=== PATIENT | female | born 1995 | race Two or more races ===

== ENCOUNTER 2020-08-06 18:23 | Emergency (ER) | payer OTHER ==
[~2020-08-06] VITALS: Ht 170.2 cm; Wt 71.2 kg
== END 2020-08-06 21:59 | disposition home or self-care (01) ==
LOC: ER 18:23
DX: U07.1 COVID-19 (principal)

== ENCOUNTER 2023-07-24 11:34 | Emergency (ER) | payer OTHER ==
[~2023-07-24] VITALS: Ht 170.2 cm; Wt 72.6 kg
[2023-07-24 13:15] LABS: HEMATOCRIT 38.6 % (36.0-45.00); HEMOGLOBIN 13.3 g/dL (12.0-15.00); MEAN CELL VOLUME 93.7 fL (80.00-100.00); MEAN CORPUSCULAR HEMOGLOBIN 32.2 pg (27.00-32.0); MEAN CORPUSCULAR HGB CONC 34.4 g/dl (32.0-36.0); PLATELET COUNT 221 K/uL (150-450); RED BLOOD COUNT 4.13 M/uL (4.00-6.00); RED CELL DISTRIBUTION WIDTH 13.9 % (11.5-14.5)
== END 2023-07-24 14:02 | disposition home or self-care (01) ==
LOC: ER 11:35
PROVIDERS: Emergency Medicine
DX: Z34.90 Encounter for supervision of normal pregnancy, unspecified, unspecified trimester (principal); R53.81 Other malaise; Z20.822 Contact with and (suspected) exposure to COVID-19

== ENCOUNTER 2024-10-28 18:44 | Emergency (ER) | payer OTHER ==
[~2024-10-28] VITALS: Ht 170.2 cm; Wt 69.4 kg
[2024-10-28 21:06] LABS: BASO % 0.5 % (0.1-1.2); EOS # 0.17 (0.04-0.54); EOS % 3.9 % (0.7-7.0); HEMATOCRIT 38.8 % (34.1-44.9); HEMOGLOBIN 12.9 g/dL (11.2-15.7); LYMPH # 1.35 (1.18-3.74); LYMPH % 30.6 % (19.3-53.1); MEAN CORPUSCULAR HEMOGLOBIN 30.3 pg (25.6-32.2); MONO # 0.56 (0.24-0.82); NEUT % 52.1 % (34.0-71.1); PLATELET COUNT 160 K/uL (163-369); RED BLOOD COUNT 4.26 M/uL (3.93-5.22); RED CELL DISTRIBUTION WIDTH 12.8 % (11.6-14.4)
[2024-10-28 21:19] LABS: MONO % 12.7 % (4.7-12.5)
[2024-10-28 21:20] LABS: COVID-19 AG NEGATIVE (NEGATIVE)
[2024-10-28 21:30] LABS: INFLUENZA A AG NEGATIVE (NEGATIVE); INFLUENZA B AG NEGATIVE (NEGATIVE)
[2024-10-28] MEDS ORDERED: ZYRTEC10 MG PO (21:37)
[2024-10-28] MEDS ORDERED: BENZONATATE200 M1 PO (21:37)
[2024-10-28] MEDS ORDERED: PEPCID AC20 MG PO (21:37)
== END 2024-10-28 21:42 | disposition home or self-care (01) ==
LOC: ER 18:44
PROVIDERS: General Practice
DX: R05.8 Other specified cough (principal); Z20.822 Contact with and (suspected) exposure to COVID-19